=== PATIENT | male | born 1990 | race Native Hawaiian/Other Pacific Islander ===

== ENCOUNTER 2023-07-07 15:30 | Emergency (ER) | payer OTHER ==
[~2023-07-07] VITALS: Ht 190.5 cm; Wt 117.9 kg
[2023-07-07 15:35] VITALS: TEMP 98
[2023-07-07 16:06] LABS: PLATELET COUNT 194 K/uL (142-355)
[2023-07-07 16:15] LABS: POTASSIUM 4.3 mmol/L (3.6-5.2)
[2023-07-07 17:22] VITALS: BP 121/69
== END 2023-07-07 17:25 | disposition home or self-care (01) ==
LOC: EDBD 15:30 → ED 15:30
PROVIDERS: Family Medicine
DX: S29.011A Strain of muscle and tendon of front wall of thorax, initial encounter (principal); F17.210 Nicotine dependence, cigarettes, uncomplicated; F12.90 Cannabis use, unspecified, uncomplicated
CPT/HCPCS: 36415; 80053; 82550; 84484; 85027; 85379; 93005; 99284